=== PATIENT | male | born 1970 | race Caucasian/White ===

== ENCOUNTER 2024-04-29 16:49 | Emergency (ER) | payer MEDICAID, OTHER ==
[~2024-04-29] VITALS: Ht 154.9 cm; Wt 60.0 kg
[2024-04-29 16:57] VITALS: BP 139/87; PULSE 76; RESP 18; TEMP 98.5; O2SAT 99
[2024-04-30] MEDS ORDERED: AMOX-494 MT (00:40)
[2024-04-30] MEDS ORDERED: CETI10CA2 MT (00:40)
[2024-04-30] MEDS ORDERED: IBUP-2029 MT (00:40)
== END 2024-04-30 01:03 | disposition home or self-care (01) ==
LOC: ER 16:49
DX: S02.92XA Unspecified fracture of facial bones, initial encounter for closed fracture (principal); E78.00 Pure hypercholesterolemia, unspecified; X58.XXXA Exposure to other specified factors, initial encounter; Y93.89 Activity, other specified; Y92.89 Other specified places as the place of occurrence of the external cause; Y99.8 Other external cause status
CPT/HCPCS: 70486; 99284